=== PATIENT | female | born 1945 | race American Indian/Alaskan Native ===

== ENCOUNTER 2017-01-31 16:54 | Emergency (ER) | payer OTHER, MEDICARE ==
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
[2017-01-31 18:06] LABS: Basophils % (Auto) 0.7 % (0.0-1.8); Eosinophils % (Auto) 1.8 % (0.0-4.3); Hematocrit 35.6 % (30.3-42.9); Hemoglobin 11.1 gm/dl (10.1-14.3); Mean Corpuscular HGB Conc 31 % (30-34); Mean Corpuscular Volume 77 fl (79-97); Platelet Count 177 K/mm3 (140-440); Red Blood Count 4.63 M/mm3 (3.65-5.03); Red Cell Distribution Width 14.4 % (13.2-15.2); White Blood Count 4.9 K/mm3 (4.5-11.0)
[2017-01-31 18:11] LABS: Mean Corpuscular Hemoglobin 24 pg (28-32)
[2017-01-31 18:15] LABS: INR 1.79 (0.87-1.13)
[2017-01-31 18:16] LABS: Partial Thromboplastin Time 37.3 Sec. (24.2-36.6)
[2017-01-31 18:50] LABS: Alanine Aminotransferase 17 units/L (7-56); Albumin 4.1 g/dL (3.9-5); Albumin/Globulin Ratio 1.2 %; Alkaline Phosphatase 68 units/L (35-129); Anion Gap 19 mmol/L; BUN/Creatinine Ratio 14.16; Blood Urea Nitrogen 17 mg/dL (7-17); Calcium 9.4 mg/dL (8.4-10.2); Carbon Dioxide 27 mmol/L (22-30); Chloride 102.9 mmol/L (98-107); Glucose 113 mg/dL (65-100); Potassium 4.2 mmol/L (3.6-5.0); Sodium 145 mmol/L (137-145); Total Protein 7.5 g/dL (6.3-8.2)
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
[2017-01-31] MEDS ORDERED: TORADOL IM ONE (23:08)
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
[2017-01-31] MEDS ORDERED: NORVASC PO ONE (23:41)
[2017-02-01 00:08] VITALS: BP 183/70
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
== END 2017-02-01 00:15 | disposition home or self-care (01) ==
LOC: ED 16:54
DX: M54.2 Cervicalgia (principal); I10 Essential (primary) hypertension; R79.1 Abnormal coagulation profile; I26.99 Other pulmonary embolism without acute cor pulmonale; V49.59XA Passenger injured in collision with other motor vehicles in traffic accident, initial encounter; Y93.89 Activity, other specified; Y99.9 Unspecified external cause status; Y92.488 Other paved roadways as the place of occurrence of the external cause
CPT/HCPCS: 36415; 71020; 72125; 80053; 84484; 85025; 85610; 85730; 93005; 93010; 96372; 99284; J1885

== ENCOUNTER 2017-04-30 18:09 | Emergency (ER) | payer OTHER, MEDICARE ==
[2017-04-30 18:21] VITALS: BP 157/86
[2017-04-30] MEDS ORDERED: TYLENOL PO ONE (21:57)
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
== END 2017-04-30 23:35 | disposition home or self-care (01) ==
LOC: ED 18:09
DX: M54.2 Cervicalgia (principal); R51 Headache; V89.2XXA Person injured in unspecified motor-vehicle accident, traffic, initial encounter; Z88.6 Allergy status to analgesic agent; Z79.01 Long term (current) use of anticoagulants; V49.50XA Passenger injured in collision with unspecified motor vehicles in traffic accident, initial encounter; Y93.9 Activity, unspecified; Y99.9 Unspecified external cause status; Y92.410 Unspecified street and highway as the place of occurrence of the external cause
CPT/HCPCS: 70450; 72125

== ENCOUNTER 2018-09-11 11:32 | Day surgery (SDC) | payer MEDICARE ==
--- NOTE | 2018-09-11 12:47 | Anesthesia Consultation ---
Anesthesia Consult and Med Hx Date of service: 09/11/18 - Airway Anesthetic Teeth Evaluation: Good ROM Head & Neck: Adequate Mental/Hyoid Distance: Adequate Mallampati Class: Class II Intubation Access Assessment: Probably Good - Pulmonary Exam CTA: Yes - Cardiac Exam Cardiac Exam: RRR - Pre-Operative Health Status ASA Pre-Surgery Classification: ASA3 Proposed Anesthetic Plan: MAC - Pulmonary Hx Sleep Apnea: Yes (cpap) - Cardiovascular System Hx Hypertension: Yes - Hematic Hx Anemia: Yes - Additional Comments Anesthesia Medical History Comments: H/O PE, off coumadin since 09/05/18
--- NOTE | 2018-09-11 12:47 | Anesthesia Day of Surgery ---
Anesthesia Day of Surgery - Day of Surgery Patient Examined: Yes Patient H&P Reviewed: Yes Patient is NPO: Yes
[2018-09-11] MEDS ORDERED: NACL 0.9% 1000 ML 1,000 ML IV SCH (13:00)
[2018-09-11] MEDS ORDERED: DIPRIVAN 10 MG/ML IV ONE (14:34)
[2018-09-11] MEDS ORDERED: VERSED ONE (14:34)
--- NOTE | 2018-09-11 15:13 | Discharge Summary ---
Short Stay Discharge Plan Activity: advance as tolerated Weight Bearing Status: Weight Bear as Tolerated Diet: regular Additional Instructions: Post Sedation D/C Instructions When you return home you may resume your regular diet unless otherwise directed. -Go directly home from the hospital and rest quietly. You may resume normal activities tomorrow. -Do NOT drive, return to work, operate any machinery or make any important personal or business decisions today. -Do NOT drink any alcohol or take nerve or sleeping drugs. They add to the effects of the medicine still present in your body. Follow up with: JOESPH LAMBERT JR, MD [Primary Care Provider] - 7 Days
--- NOTE | 2018-09-11 15:13 | Operative Report ---
Operative Report Operative Report: Date of procedure: 09/11/2018 Procedure: Colonoscopy . Attending physician: Riky Hough MD Counter Molder: Riky Hough MD Indication: Patient is a 73-year-old female who presents for colonoscopy. She has a history of rectal bleeding and change in bowel habits with diarrhea. A colonoscopy serves to evaluate patients symptoms so that treatment may be directed based on the findings. Consent: Informed consent was obtained after advising the patient and family regarding nature of this procedure, its indications, potential benefits as well as possible complications including but not limited to bleeding perforation and adverse reaction to medication, infection as well as other cardiopulmonary comp lications. An informed written and verbal consent was then obtained after due opportunity was provided for questions and answers. Monitoring: Patient was monitored continuously with pulse oximetry and electrocardiographic recordings as well as blood pressure recordings. Vital signs remained stable throughout this procedure with no untoward events. Preoperative assessment: Patient was assessed immediately prior to this procedure for capacity to tolerate monitored anesthesia care and moderate sedation as well as general anesthesia. Patient's ASA classification is 2, Mallampati class is 2, Hyomental distance is 3. Instrument: [employer] videocolonoscope. Medications: Propofol given intravenously in divided doses. For details please refer to anesthesia records. Description of procedure: Patient was placed in the left lateral decubitus position after achieving sedation, a digital rectal examination was performed following which the colonoscope was introduced into the anal verge and advanced to the cecum which was identified by the cecal valve, the appendiceal orifice, as well as by the cecal strap and direct transillumination. The colonoscope was subsequently withdrawn with careful inspection of all mucosal surfaces. Patient tolerated this procedure well and was subsequently taken to the recovery room. The following findings were noted. Findings: Patient had extensive diverticulosis of the colon involving all segments of the colon. There is resolving acute diverticulitis in the ascending colon. There were no other mucosal abnormalities seen except for retained stool. On the retroflex view at the anal verge, patient had prominent large friable large internal hemorrhoids. Impression: Diverticular disease of the colon Acute ascending colon diverticulitis Prominent friable Internal hemorrhoids.. Plan: Begin treatment with ciprofloxacin 500 mg twice daily for 10 days Flagyl 250 mg 3 times a day for 10 days High-fiber diet. Patient is scheduled for further outpatient follow-up. Patient may also benefit from hemorrhoidal band ligation in the near future.
[2018-09-11 15:27] VITALS: BP 140/59
--- NOTE | 2018-09-11 15:51 | Post Anesthesia Evaluation ---
- Post Anesthesia Evaluation Patient Participated: Yes Airway Patent: Yes Stable Respiratory Function: Yes Temp > 96.8F: Yes Pain Manageable: Yes Adequeate Hydration: Yes Anesthesia Complications: No
== END 2018-09-11 11:33 | disposition home or self-care (01) ==
LOC: GIO 11:32
PROVIDERS: ATTEND Internal Medicine Gastroenterology
DX: K57.30 Diverticulosis of large intestine without perforation or abscess without bleeding (principal); K64.8 Other hemorrhoids; I10 Essential (primary) hypertension; G47.30 Sleep apnea, unspecified; D64.9 Anemia, unspecified; Z79.899 Other long term (current) drug therapy; Z79.01 Long term (current) use of anticoagulants; Z88.5 Allergy status to narcotic agent; Z90.710 Acquired absence of both cervix and uterus; Z98.890 Other specified postprocedural states
CPT/HCPCS: 45378; J2250; J2704; J7030

== ENCOUNTER 2019-08-02 11:31 | Outpatient (CLI) | payer MEDICARE ==
[2019-08-02 12:38] LABS: Hematocrit 35.4 % (30.3-42.9); Hemoglobin 11.4 gm/dl (10.1-14.3); Mean Corpuscular HGB Conc 32 % (30-34); Mean Corpuscular Volume 76 fl (79-97); Platelet Count 189 K/mm3 (140-440); Red Blood Count 4.67 M/mm3 (3.65-5.03); Red Cell Distribution Width 14.6 % (13.2-15.2)
--- NOTE | 2019-08-02 12:39 | XRay Report ---
CHEST 2 VIEWS INDICATION: H/O PULMONARY EMBOLISM/. COMPARISON: None. FINDINGS: Support devices: None. Heart: Mild cardiomegaly. Lungs/Pleura: No acute air space or interstitial disease. No significant pleural effusion. IMPRESSION: Moderate cardiomegaly. Signer Name: Jase Huertas MD Signed: 08/02/2019 12:34 PM Workstation Name: [id number]
[2019-08-02 12:55] LABS: Alanine Aminotransferase 19 units/L (7-56); Albumin 4.4 g/dL (3.9-5); BUN/Creatinine Ratio 16; Blood Urea Nitrogen 14 mg/dL (7-17); Calcium 9.8 mg/dL (8.4-10.2); Chol/HDL Ratio 2.66 %; HDL Cholesterol 89 mg/dL (40-59); Hemolysis Index 1; LDL Cholesterol,Direct 154 mg/dL (50-130)
[2019-08-02 12:58] LABS: INR 2.19 (0.87-1.13)
== END 2019-08-02 11:32 | disposition home or self-care (01) ==
LOC: XRAY 11:31
PROVIDERS: ATTEND Internal Medicine
DX: I26.99 Other pulmonary embolism without acute cor pulmonale (principal); G47.33 Obstructive sleep apnea (adult) (pediatric)
CPT/HCPCS: 36415; 71046; 80053; 80061; 84436; 84443; 85027; 85610